=== PATIENT | male | born 1960 | race Two or more races ===

== ENCOUNTER → 2020-01-18 | Day surgery (SDC) | payer BC ==
[2020-01-18] VITALS (9 sets, daily range): BP systolic 105–116; BP diastolic 69–77
[~2020-01-18] VITALS: Ht 180.3 cm; Wt 94.3 kg
[~2020-01-18] MED LIST: Atropine Inj 1mg/10ml Syr IV PRN; CELEXA20 MG ORAL; DiphenhydrAMINE 50mg/ml Inj IVP PRN; FLOMAX0.4 MG ORAL; LR 1000ml 1,000 ML IVLG SCH; LR 1000ml ONE; Lidocaine 1% MPF 10mg/ml 5ml ONE; MESALAMINE ORAL; Midazolam 2mg/2ml Inj IVP PRN; TRAZODONE HCL50 MG ORAL; fentaNYL 100 mcg/2 mL IV PRN
--- NOTE | 2020-01-18 06:45 | Anethesia Preoperative Eval ---
Anesthesia Pre-op PMH/ROS General Date of Evaluation: Jan 18, 2020 Time of Evaluation: 06:44 Anesthesiologist: deejay ASA Score: ASA 2 Mallampati Score Class I : Soft palate, uvula, fauces, pillars visible Class II: Soft palate, uvula, fauces visible Class III: Soft palate, base of uvula visible Class IV: Only hard plate visible Mallampati Classification: Class II Surgeon: alexandre Diagnosis: gerd, colon screening Surgical Procedure: egd/colonoscopy Anesthesia History: none Social History: current smoker Family History: no anesthesia problems Allergies: Coded Allergies: No Known Allergies (Unverified , 01/18/20) Medications: see eMAR Patient NPO?: Yes Past Medical History Gastrointestinal/Genitourinary: Reports: GERD, other - colitis Neurologic/Psychiatric: Reports: depression/anxiety Other: obesity PSxH Narrative: septoplasty, right foot sx Anesthesia Pre-op Phys. Exam Physician Exam Last Vital Signs Date Time Temp Pulse Resp B/P (MAP) Pulse Ox O2 Delivery O2 Flow Rate FiO2 01/18/20 09:31 96.3 61 18 116/77 98 Room Air Constitutional: NAD Neurologic: CN 2-12 intact Cardiovascular: RRR Respiratory: CTA Gastrointestinal: S/NT/ND Airway Exam Mallampati Score: Class II MO: full Neck: flexible TMD: 2fb ROM: full Anesthesia Pre-op A/P Labs Microbiology Date/Time Source Procedure Growth Status 01/15/20 12:24 Nasopharynx SARS-CoV-2 RdRp Gene Assay - Final Complete Risk Assessment & Plan Assessment: asa2 Plan: mac Status Change Before Surgery: No Pre-Antibiotics Drug: Kim Thompson MD Jan 18, 2020 06:44
--- NOTE | 2020-01-18 10:16 | Pre-Procedure Note/Attestation ---
Pre-Procedure Note/Attestation Complete Prior to Procedure Planned Procedure: not applicable Procedure Narrative: esophagogastroduodenoscopy and colonoscopy Indications for Procedure Pre-Operative Diagnosis: gerd, screening colon Attestation I attest that I discussed the nature of the procedure; its benefits; risks and complications; and alternatives (and the risks and benefits of such alternatives ), prior to the procedure, with the patient (or the patient's legal union representative). I attest that, if there was a reasonable possibility of needing a blood transfusion, the patient (or the patient's legal union representative) was given the [facility] standardized written summary, pursuant to the [place] Blood Safety Act ([place] Health and Safety Code # 1645, as amended). I attest that I re-evaluated the patient just prior to the surgery and that there has been no change in the patient's H&P, except as documented below: David Donaldson MD Jan 18, 2020 10:16
--- NOTE | 2020-01-18 10:17 | Short Stay Surgery H&P ---
History of Present Illness History of Present Illness Chief Complaint screening colon, GERD HPI Jassi Delgado is a 60 year old male who was admitted on for Gerd,Colon Screening Patient History Allergies: Coded Allergies: No Known Allergies (Unverified , 01/18/20) PAST MEDICAL HISTORY: (1) GERD (gastroesophageal reflux disease) Medication History Scheduled Citalopram Hydrobromide* (Celexa*), 20 MG ORAL DAILY, (Reported) Tamsulosin HCl (Flomax), 0.4 MG ORAL DAILY, (Reported) Trazodone Hcl* (Desyrel*), 50 MG ORAL BEDTIME, (Reported) [Asachol], 1.5 GM ORAL HS, (Reported) Review of Systems Cardiovascular: Reports: no symptoms Respiratory: Reports: no symptoms Skeletal: Reports: no symptoms Gastrointestinal: Reports: no symptoms Genitourinary: Reports: no symptoms Neurologic: Reports: no symptoms Endocrine: Reports: no symptoms Physical Exam Vital Signs Last Vital Signs Date Time Temp Pulse Resp B/P (MAP) Pulse Ox O2 Delivery O2 Flow Rate FiO2 01/18/20 09:31 96.3 61 18 116/77 98 Room Air Skin: normal HENT: normal Heart: normal Lungs: normal Abdomen: normal Extremities: normal Plan Plan of Care esophagogastroduodenoscopy and colonoscopy Attestation Are the patient's medical conditions optimized for surgery? Attestation Response: yes David Donaldson MD Jan 18, 2020 10:17
--- NOTE | 2020-01-18 10:54 | Endoscopy Procedure Note ---
Endoscopy Procedure Note General Indication for Procedure: screening colon, GERD Procedures Performed: EGD, colonoscopy Operative Findings/Diagnosis: gastritis, hemorrhoids Specimen: yes Pt Tolerated Procedure Well: Yes Estimated Blood Loss: none Anesthesia Anesthesiologist: estuardo nam Anesthesia: MAC Inserted Devices Implant(s) used?: No Quality Quality of Bowel Preparation: Good Did scope reach the cecum?: Yes Was there any complications?: No GI Core Measures 50 yrs or older w/o bx or poly: No 10yrs. F/U recommended: Yes If not recommended, why?: Above average risk 18 years or older w/prev. colo: No David Donaldson MD Jan 18, 2020 10:54
--- NOTE | 2020-01-18 12:00 | Procedure Note ---
DATE OF PROCEDURE: 01/18/2020 SURGEON: David Donaldson MD. PROCEDURE: Upper endoscopy with biopsy and colonoscopy. ANESTHESIA: Per Dr. Alvarado. INSTRUMENT: Olympus adult flexible upper endoscope and colonoscope. INDICATION: 1. Screening colonoscopy evaluation. 2. Chronic GERD. REASON FOR PROCEDURE: The procedure, risks, benefits, and possible consequences, including hemorrhage, aspiration, perforation and infection, and alternative treatments, were explained to the patient/legal guardian by Dr. David Donaldson and the patient/legal guardian understood and accepted these risks. PROCEDURE IN DETAIL: After informed consent was obtained and the patient was adequately sedated, Olympus upper endoscope was advanced from mouth into the second portion of the duodenum and retroflexion was performed in the stomach. The patient has diffuse gastritis. Random biopsy from antrum was obtained to rule out H. pylori infection. Otherwise, the rest of the upper endoscopy examination grossly within normal limits. At this time, the upper endoscope was retrieved and the patient was turned over for colonoscopy. First, rectal exam was performed, which was positive for external and internal hemorrhoids. Then, the scope was advanced from rectum to the cecum documented by appendiceal orifice, ileocecal valve, right upper quadrant palpation. Quality of prep overall was good. The patient had no obvious polyp seen in this colonoscopy examination. There was 1 or 2 single diverticula in the left colon. Retroflexion of the rectum showed evidence of medium-sized internal hemorrhoids. SUMMARY OF FINDINGS: 1. Gastritis, status post biopsy. 2. Internal and external hemorrhoids. 3. Few scattered diverticulosis in the left colon. RECOMMENDATIONS: 1. Follow up biopsy results and treat accordingly. 2. Repeat colonoscopy in 5 years. David Donaldson M.D. DR: Anika JOB#: [id number] CC:
--- NOTE | 2020-01-18 12:21 | Immediate Post-Op Evaluation ---
Immediate Post-Op Evalulation Immediate Post-Op Evalulation Procedure: egd/colonoscopy w/bx Date of Evaluation: Jan 18, 2020 Time of Evaluation: 11:31 IV Fluids: 650ml lr Blood Products: none Estimated Blood Loss: negligible Blood Pressure Systolic: 116 Blood Pressure Diastolic: 69 Pulse Rate: 53 Respiratory Rate: 18 O2 Sat by Pulse Oximetry: 97 Temperature (Fahrenheit): 97.9 Pain Score (1-10): 0 Nausea: No Vomiting: No Complications none Patient Status: awake, reacts, patent Hydration Status: adequate Drug: Kim Thompson MD Jan 18, 2020 12:21
--- NOTE | 2020-01-18 12:22 | 48 Hour Post Anesthesia Eval ---
Post Anesthesia Evaluation Procedure: egd/colonoscopy w/bx Date of Evaluation: Jan 18, 2020 Time of Evaluation: 11:33 Blood Pressure Systolic: 108 0: 69 Pulse Rate: 54 Respiratory Rate: 18 Temperature (Fahrenheit): 97.9 O2 Sat by Pulse Oximetry: 100 Airway: patent Nausea: No Vomiting: No Pain Intensity: 0 Hydration Status: adequate Cardiopulmonary Status: stable Mental Status/LOC: patient returned to baseline Post-Anesthesia Complications: none Follow-up care needed: N/A Kim Leon MD Jan 18, 2020 12:22
== END | disposition home or self-care (01) ==
LOC: GAS 09:05
DX: Z12.11 Encounter for screening for malignant neoplasm of colon (principal); K21.9 Gastro-esophageal reflux disease without esophagitis; K64.8 Other hemorrhoids; K64.4 Residual hemorrhoidal skin tags; K57.90 Diverticulosis of intestine, part unspecified, without perforation or abscess without bleeding; K29.50 Unspecified chronic gastritis without bleeding; F17.200 Nicotine dependence, unspecified, uncomplicated; E66.9 Obesity, unspecified; F32.9 Major depressive disorder, single episode, unspecified; F41.9 Anxiety disorder, unspecified; Z68.29 Body mass index [BMI] 29.0-29.9, adult
CPT/HCPCS: 43239; 45378; 94003; J2704; J7120; U0002; 94150